=== PATIENT | male | born 1960 | race Caucasian/White ===

== ENCOUNTER 2016-08-31 09:45 | Outpatient (CLI) | payer BC, OTHER | END 2016-08-31 09:46 | disposition home or self-care (01) | LOC: SC 09:45 | PROVIDERS: ATTEND Internal Medicine Pulmonary Disease | DX: G47.33 Obstructive sleep apnea (adult) (pediatric) (principal) | CPT/HCPCS: 99203; 99212 ==

== ENCOUNTER 2016-10-06 09:07 | Outpatient (CLI) | payer BC, OTHER | END 2016-10-06 09:08 | disposition home or self-care (01) | LOC: SC 09:07 | PROVIDERS: ATTEND Nurse Practitioner Family | DX: G47.33 Obstructive sleep apnea (adult) (pediatric) (principal) | CPT/HCPCS: 99212; 99213 ==

== ENCOUNTER 2016-11-16 15:14 | Outpatient (CLI) | payer BC | END 2016-11-16 15:15 | disposition home or self-care (01) | LOC: SC 15:14 | PROVIDERS: ATTEND Internal Medicine Pulmonary Disease | DX: G47.33 Obstructive sleep apnea (adult) (pediatric) (principal) | CPT/HCPCS: 99212; 99213 ==

== ENCOUNTER 2017-10-03 12:50 | Outpatient (CLI) | payer BC | END 2017-10-03 12:51 | disposition home or self-care (01) | LOC: NS 12:50 | PROVIDERS: ATTEND Physician Assistant | DX: Z71.3 Dietary counseling and surveillance (principal); I10 Essential (primary) hypertension; Z68.42 Body mass index [BMI] 45.0-49.9, adult; E11.9 Type 2 diabetes mellitus without complications; E66.01 Morbid (severe) obesity due to excess calories; Z79.84 Long term (current) use of oral hypoglycemic drugs | CPT/HCPCS: 97802 ==